=== PATIENT | male | born 1975 | race Two or more races ===

== ENCOUNTER 2024-04-18 05:50 | Inpatient (IN) | payer OTHER, MEDICAID ==
[2024-04-14 09:15] LABS: Urine Bacteria None Seen /hpf (None Seen)
[2024-04-14 10:02] LABS: Basophils # (auto) 0 10 ^3/uL (0-0.2); Basophils % (auto) 0.4 % (0.0-2.0); Eosinophils # (auto) 0.1 10 ^3/uL (0-0.8); Eosinophils % (auto) 0.7 % (0.0-7.0); Hematocrit 49.7 % (41.0-53.0); Hemoglobin 16.8 g/dL (13.5-17.5); Lymphocytes # (auto) 3.2 10 ^3/uL (0.4-5.4); Lymphocytes % (auto) 35.9 % (10.0-50.0); Mean Corpuscular Hemoglobin 29.8 pg (28.0-32.0); Mean Corpuscular Hgb Conc. 33.9 g/dL (32.0-36.0); Mean Corpuscular Volume 88.1 fL (80.0-100.0); Monocytes # (auto) 0.4 10 ^3/uL (0-1.3); Monocytes % (auto) 4.6 % (0.0-12.0); Neutrophils # (auto) 5.3 10 ^3/uL (1.6-8.6); Neutrophils % (auto) 58.4 % (37.0-80.0); Platelet Count (auto) 239 10^3/uL (140-450); Red Blood Cells 5.64 10^6/uL (4.5-5.90)
[2024-04-14 10:26] LABS: Alanine Aminotransferase 37 U/L (7-40); Albumin 4.6 g/dL (3.2-4.8); Alkaline Phosphatase 79 U/L (46-116); Anion Gap 8 (5-15); Aspartate Aminotransferase 19 U/L (13-40); BUN/Creatinine Ratio 13.9 (10.0-20.0); Bilirubin, Total 0.6 mg/dL (0.2-1.0); Blood Urea Nitrogen 15 mg/dL (9-23); Calcium 9.9 mg/dL (8.7-10.4); Carbon Dioxide 28 mmol/L (20-31); Chloride 103 mmol/L (98-107); Potassium 3.8 mmol/L (3.5-5.1); Sodium 139 mmol/L (136-145)
[2024-04-14 10:30] LABS: Glucose 168 mg/dL (74-106)
[2024-04-14 10:43] LABS: Urine Blood Negative /uL (Negative); Urine Clarity Clear (Clear); Urine Color Light-Yellow (Yellow); Urine Protein, UAD Negative (Negative); Urine Specific Gravity 1.023 (1.001-1.035); Urine Squamous Epithelial Cell None Seen /hpf (<5); Urine Urobilinogen Normal (Negative); Urine WBC < 1 /HPF (0-3); Urine pH 5.5 (5.0-9.0)
[2024-04-14 10:53] LABS: INR 1.02 (0.9-1.15); Partial Thromboplastin Time 28.2 SEC (24.5-34.5); Prothrombin Time 10.8 sec (9.3-11.8)
[~2024-04-18] VITALS: Ht 172.7 cm; Wt 66.0 kg
[2024-04-18] VITALS (12 sets, daily range): BP systolic 93–139; BP diastolic 41–82; PULSE 69–87; RESP 12–19; TEMP 97.5–98.3; O2SAT 89–98
[~2024-04-18 05:50] MED LIST: HYDR25TA4 PO; LISI40TA16 PO; METO25TA36 PO
[2024-04-18] MEDS: ceFAZolin 2 GM/D5W100ml 100 ML IV ONE (06:25)
[2024-04-18] MEDS: TRANEXAMIC ACID 20 ML ONE (06:36)
[2024-04-18] MEDS: LIDOCAINE W/ EPINEPHRINE 1% 20ML VIAL ONE (06:36)
[2024-04-18] MEDS ORDERED: NALOXONE HCL 0.4 MG/ML VIAL IV PRN (06:45)
[2024-04-18] MEDS ORDERED: ePHEDrine SULFATE 50 MG/ML AMP IV PRN (06:45)
[2024-04-18] MEDS: ONDANSETRON HCL 4 MG/2 ML VIAL IV ONE (06:45)
[2024-04-18] MEDS ORDERED: MORPHINE SULFATE 4 MG/ML SYR/VIAL IV PRN ×2 (06:45)
[2024-04-18] MEDS ORDERED: HYDROmorphone HCL 2 MG/ML VL/or syr IV PRN ×2 (06:45)
[2024-04-18] MEDS ORDERED: hydrALAZINE HCL 20 MG/ML VL IV PRN (06:45)
[2024-04-18] MEDS: CIPROFLOXACIN 400MG/200ML 400 ML IV ONE (06:53)
[2024-04-18] MEDS ORDERED: PROPOFOL 10 MG/ML 20 ML IV ONE (06:58)
[2024-04-18] MEDS ORDERED: ROCURONIUM 10MG/ML 10ML VIAL IV ONE (06:58)
[2024-04-18] MEDS: PROPOFOL 200 ML IV ONE ×2 (07:04→09:19)
[2024-04-18] MEDS ORDERED: MIDAZOLAM HCL 2MG/2ML 2ml VIAL (1mg/ml) ONE (07:06)
[2024-04-18] MEDS ORDERED: fentaNYL CITRATE 100 MCG/2 ML VL ONE ×3 (07:06→09:58)
[2024-04-18] MEDS ORDERED: LIDOCAINE 1% INJ PF 5ML AMP ONE (07:41)
--- NOTE | 2024-04-18 07:46 | DVHHP2 ---
Admitting Diagnosis: lumbar spinal stenosis with severe neurogenic claudication History of Present Illness Home Meds Reported Medications Lisinopril (Lisinopril) 40 Mg Tab, 40 MG PO DAILY, TAB 04/14/24 Metoprolol Succinate (Toprol Xl) 25 Mg Tab, 25 MG PO DAILY, TAB 04/14/24 Hydrochlorothiazide (Hydrochlorothiazide) 25 Mg Tab, 25 MG PO DAILY, TAB 04/14/24 Timing/Duration of Neck Pain: Getting worse, Changing over time Timing/Duration of Back Pain: Getting worse, Changing over time Quality of Back Pain: Sharpness, Stabbing Back Pain Location: Lumbar spine Back Pain Radiation: Lower legs Method of Injury/Prior Factors: Unknown Modifying Factors for Back Barbara: Movement Associated Symptoms of Back Pa: Numbness in feet, Tingling in legs, Tingling in feet, Sensory loss, Motor loss H&P Exam Vital Signs Vital Signs Date Time Temp Pulse Resp B/P (MAP) Pulse Ox O2 Delivery O2 Flow Rate FiO2 04/18/24 06:50 99.4 78 18 154/96 (115) 99 99.4 General Appeara: Well developed, Well nourished, Normal Appearance Head Exam: Normal inspection Neck Exam: Normal inspection, Non-tender, Normal alignment Eye Exam: bilateral eye Normal inspection, bilateral eye PERRL, bilateral eye EOMI Ear Exam: bilateral ear Auricle normal, bilateral ear Canal normal, bilateral ear TM normal Nasal Exam: Normal inspection Mouth: Normal Inspection Pulmonary/Respiratory: Normal inspection, Normal breath sounds, Chest non- tender, Lungs clear Abdominal Exam: Normal bowel sounds, Soft, No tenderness, No hepatospenomegaly, No masses Rectal Exam: Deferred Back Exam: Decreased range of motion, Muscle spasm, Vertebral tenderness Pelvic Exam: Not done Male Genital Exam: Not done Shoulder Exam: Normal inspection, Non-tender, Normal ROM Elbow/Forearm Exam: Normal inspection, Non-tender, Normal ROM Wrist Exam: Normal inspection, Non-tender, Normal ROM Hand Exam: Normal inspection, Non-tender, Normal ROM Hip exam: Normal inspection, Non-tender, Normal range of motion Legs: bilateral leg non-tender, bilateral leg normal inspection, bilateral leg normal range of motion, bilateral leg no evidence of injury Knees: bilateral knee non-tender, bilateral knee normal inspection, bilateral knee normal range of motion, bilateral knee no evidence of injury Ankle Exam: bilateral ankle Normal inspection, bilateral ankle Non-tender, bilateral ankle Normal range of motion, bilateral ankle No evidence of injury Foot: bilateral foot non-tender, bilateral foot normal inspection, bilateral foot normal range of motion, bilateral foot no evidence of injury Tendon/ Neuro: Motor deficit, Sensory deficit Motor/Sensory: Weak motor strength RLE, Weak motor strength LLE Deep Tendon Ref: All intact Neuro/Mental St: Alert, Oriented Appearance: Appropriate appearance, Appropriate insight Eye contact/ Speech: Cooperative, Good eye contact, Normal speech Coordination/Gait: Normal finger->nose, Normal gait, Negative Romberg's sign, Abnormal gait Lymphatic: Normal inspection Labs/Xrays Labs Test 04/14/24 09:09 Range/Units White Blood Count 9.0 4.4-10.8 10^3/uL Red Blood Count 5.64 4.5-5.90 10^6/uL Hemoglobin 16.8 13.5-17.5 g/dL Hematocrit 49.7 41.0-53.0 % Mean Corpuscular Volume 88.1 80.0-100.0 fL Mean Corpuscular Hemoglobin 29.8 28.0-32.0 pg Mean Corpuscular Hemoglobin Concent 33.9 32.0-36.0 g/dL Red Cell Distribution Width 14.0 11.8-14.3 % Platelet Count 239 140-450 10^3/uL Mean Platelet Volume 8.9 6.9-10.8 fL Neutrophils (%) (Auto) 58.4 37.0-80.0 % Lymphocytes (%) (Auto) 35.9 10.0-50.0 % Monocytes (%) (Auto) 4.6 0.0-12.0 % Eosinophils (%) (Auto) 0.7 0.0-7.0 % Basophils (%) (Auto) 0.4 0.0-2.0 % Neutrophils # (Auto) 5.3 1.6-8.6 10 ^3/uL Lymphocytes # (Auto) 3.2 0.4-5.4 10 ^3/uL Monocytes # (Auto) 0.4 0-1.3 10 ^3/uL Eosinophils # (Auto) 0.1 0-0.8 10 ^3/uL Basophils # (Auto) 0 0-0.2 10 ^3/uL Nucleated Red Blood Cells 0.0 % Prothrombin Time 10.8 9.3-11.8 sec Prothrombin Time INR 1.02 0.9-1.15 Activated Partial Thromboplast Time 28.2 24.5-34.5 SEC Urine Color Light-yellow Yellow Urine Clarity Clear Clear Urine pH 5.5 5.0-9.0 Urine Specific [place] 1.023 1.001-1.035 Urine Protein Negative Negative Urine Ketones Negative Negative Urine Blood Negative Negative /uL Urine Nitrite Negative Negative Urine Bilirubin Negative Negative Urine Urobilinogen Normal Negative mg/dL Urine Leukocyte Esterase Negative Negative /uL Urine RBC 1 0 - 3 /hpf Urine Microscopic WBC < 1 0-3 /HPF Urine Squamous Epithelial Cells None seen <5 /hpf Urine Bacteria None seen None Seen /hpf Urine Glucose Normal Normal mg/dL Sodium Level 139 136-145 mmol/L Potassium Level 3.8 3.5-5.1 mmol/L Chloride Level 103 98-107 mmol/L Carbon Dioxide Level 28 20-31 mmol/L Anion Gap 8 5-15 Blood Urea Nitrogen 15 9-23 mg/dL Creatinine 1.08 0.700-1.30 mg/dL Glomerular Filtration Rate Calc 85 >90 mL/min BUN/Creatinine Ratio 13.9 10.0-20.0 Serum Glucose 168 H 74-106 mg/dL Calcium Level 9.9 8.7-10.4 mg/dL Total Bilirubin 0.6 0.2-1.0 mg/dL Aspartate Amino Transferase (AST) 19 13-40 U/L Alanine Aminotransferase (ALT) 37 7-40 U/L Alkaline Phosphatase 79 46-116 U/L Total Protein 7.0 5.7-8.2 g/dL Albumin 4.6 3.2-4.8 g/dL Assessment/Plan Primary Diagnosis lumbar spinal stenosis with severe neurogenic claudication Plan admite for elective lumbar spine surgery Plan discussed with: Patient STEVE KEYES MD Apr 18, 2024 07:46
[2024-04-18] MEDS ORDERED: HYDROmorphone HCL 2 MG/ML VL/or syr ONE (08:21)
[2024-04-18] MEDS ORDERED: MORPHINE SULFATE INJ 2 MG/ml SYRG IV PRN ×2 (08:30)
[2024-04-18] MEDS ORDERED: NITROGLYCERIN 0.4 MG SL TAB SL PRN (08:30)
[2024-04-18] MEDS ORDERED: ONDANSETRON HCL 4 MG/2 ML VIAL IV PRN (08:30)
[2024-04-18] MEDS ORDERED: ACETAMINOPHEN 325 MG TAB PO PRN (08:30)
[2024-04-18] MEDS ORDERED: ePHEDrine SULFATE 50 MG/ML AMP ONE (09:29)
[2024-04-18] MEDS ORDERED: SUGAMMADEX 200mg/2ml Vial (100MG/ML) IV ONE (10:04)
[2024-04-18] MEDS: THROMBIN (BOVINE) 5000 UNIT SOL VIAL ONE (10:18)
[2024-04-18] MEDS: GELATIN 1 SPONGE SIZE 100 TOP ONE (10:18)
[2024-04-18] MEDS ORDERED: DexAMETHasone SOD PHOS 10MG/1ML VIAL INJ ONE (11:03)
[2024-04-18] MEDS ORDERED: ONDANSETRON HCL 4 MG/2 ML VIAL ONE (11:03)
[2024-04-18] MEDS ORDERED: KETOROLAC TROMETH 30 MG/ML 1ML VIAL ONE (11:03)
--- NOTE | 2024-04-18 11:35 | DVHOP2 ---
Operative Report - 2 Report Details Date: 04/18/24 Preop Diagnosis: Post laminectomy syndrome with severe lumbar spinal stenosis /degenerative disc disease and neurogenic claudication Postop Diagnosis: same as pre op Surgeon: Alexis Keyes MD Mobile Designer: none Anesthesiologist: Dr. mchugh Anesthesia: General Consent: The patient was informed of the risks and benefits of the procedure. These include but are not limited to complications of anesthesia, postoperative infection, incomplete relief of symptoms, recurrence of symptoms, damage to blood vessels, nerves and tendons, deep venous thrombosis, pulmonary embolism and possible need for repeat surgery in the future. Name of Procedure Performed see detailed note Procedure Details Procedure Details: Pre-op Diagnosis: 1. 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 Lumbar spinal stenosis with incapacitating radiculopathy Post-op Diagnosis: same as pre op Procedure: 1. Revision lumbar 5 laminotomies/foraminotomies/facetectomies to decompress central canal and lumbar 5 nerve roots bilaterally 2. Revision lumbar 4 laminotomies, foraminotomies/facetectomies to decompress central canal and lumbar 4 nerve roots bilaterally 3. lumbar 3 laminectomy with lumbar 3 foraminotomies and facetectomies to decompress central canal and bilateral lumbar 3 tena roots 4. Lumbar 3 to 5 posterior spinal intertransverse fusion with bone graft 5. Lumbar 3 to 5 posterior spinal instrumentation with pedicle screws 6. Autograft bone for fusion 7. Allograft bone Bacteria to augment fusion 8. De-mineralized bone matrix to augment fusion 9. Microscope for micro dissection Surgeon: Dr. Keyes Assist: none Anesthesia: General Fluids and EBL: See anesthesia note Patient was seen in the Pre Anesthesia Care Unit (PACU) and the operative site was initialed by me. All questions were answered to the patients satisfaction and chart reviewed. The patient was taken to the operative room where pre- operative antibiotics were given 30 minutes prior to incision. General anesthesia was induced and neuro-monitoring leads placed. Lamas catheter was placed. The patient was turned prone onto the [facility] spinal table. While positioning, I made sure that the belly was free to allow proper expansion of the lungs. The hips were extended and all bony prominences padded. The shoulders were abducted 80 degree and the elbows flexed 100 degrees with no tension on the brachial plexus. I check the foot arterial pulses and they were palpable. The old surgical scar was marked with a marker prior to prepping and draping. The patient was prepped and draped and time out was taken at this time per usual protocol. At this time, the C-arm fluoroscope was brought in and was used to lindsey the incision borders proximally and distally. Using a Number 10 Blade, an incision was made extending it proximally and distally per C arm lindsey from the posterior spinous process of lumbar 3 down to lumbar 5 , down to the lumbo-dorsal fascia. All bleeding was controlled with electrocautery. Self- retaining retractors were placed. Electrocautery was then used to take down the lumbo-dorsal fascia, to free the muscle off the bone bilaterally where the tissue was virgin. A Noah retractor was placed over the posterior spinous process proximally and a lateral C-arm fluoroscope image was taken to insure we were at the correct level. Next, dissection through the prior surgical site was started at virgin tissue and the deep back muscles were taken down as deep as possible while avoiding getting too close to the dura and avoiding being too shallow to cause nerve injury and bleeding. Next, using bovie electro cautery, The deep fascia laterally to the facet joints was removed to expose the transverse processes of lumbar 2 , 3 and 4 and 5 while taking care to avoid injuring the facet capsule at the proximal end of the incision. Next, the microscope was bought in for visualization and using a Luxell rongeur, the posterior spinous process of lumbar 3,4,and remnants of lumbar 5 removed and the bone was saved for use as local autograft. I used alternating Kerison 2 mm and 3 mm rongeurs to perform lumbar 3 ,4 and 5 and bilateral laminotomies/foraminotomies and facetectomies to revise the decompression of the central canal and lateral recesses and foramen to decompress the bilateral lumbar 3,4,5 nerve roots and central canal. Next using alternating Kerison 2mm and 3 mm rongeurs, the superior articular facets of lumbar 3,4,5 were removed bilaterally at the virgin dissection to decompress the lateral recess (facetectomies) and then extended proximally to decompress the foramen bilaterally (foraminotomies). Next , carefully, straight and curved curettes were used to free up the dura from residual lamina left from the prior surgeries and kerison 2mm and 3 mm reongeurs removed the remaining lamina (revisionlaminotomies). Next, the 2mm and 3mm Kerison rongeurs undercut the superarticular facets and widened the foramina in the manner described above for the3,4 and 5 levels. I used a ball tipped nerve probed to insure that the respective nerve roots were able to be mobilized 5mm in each direction were unimpeded in the lateral recess and foramen. Next I carefully inspected the dura to make sure no durotomy was visible and it was not. I covered the exposed dura with gelfoam soaked in thrombin and the microscope was wheeled away from the operative filed. The C-arm fluoroscope was brought in and perfect AP views of the lumbar 3,4 and 5 pedicle were obtained. I placed bilateral pedicle screws at this levels by: using a Lenke awl to make a airplane pilot crop dusting hole, then a ball tip robe to make sure there was no pedicle breach, then a tap to prepare the track and a 6.5 mm diameter 45 mm length pedicle screw from the [employer] was placed bilaterally. This step to place bilateral pedicle screws was repeated up to the lumbar 3,4 and 5 level. Next, the c-arm fluoroscope took an AP and lateral x-ray to ensure proper placement of the pedicle screws. Next, the neuro-stimulation probe was placed over the tip of each screw and each screw stimulated only after a current greater than 10 mA was delivered to the screw. Next , I took a Midas Herb Drill to decorticate the transverse process which were exposed and local bone graft, Bacterin allograft bone substitute and Demineralized bone matrix were placed along the inter transverse process intervals bilaterally (the fusion bed). Next a curved kavin sized to fit the pedicle screw interval was placed and secured to each pedicle screw using set screws, The set screws were tighten using a torque screwdriver (set to 10 N*M torque) to secure the kavin to the pedicle screws bilaterally. Final AP and lateral C arm fluoroscopic films were taken at this time. Next a 10 [place] diameter Hemovac drain was laced deep to the lumbo-dorsal fascia. The lumbo-dorsal fascia was closed with interrupted 0-Vicry sutures. The subcutaneous tissue was closed with interrupted 2-0 Vicryl sutures. The skin was closed with 2-0 nylon subcuticular suture. Sterile dressings were place. The pt. was turned supine onto the stretcher, extubated and taken to the recovery room in stable condition. Additional Notes: Plan made post op for TLSO brace and bone stimulator placement when on the floor and stable [employer] Condition Stable Disposition Still a Patient ALEXIS KEYES MD Apr 18, 2024 11:35
--- NOTE | 2024-04-18 11:56 | DVH ---
C-ARM FLUOROSCOPY: PROCEDURE: Lumbar decompression FLUOROSCOPY TIME: 79 sec DAP: 89 mgy FINDINGS: Spot intraoperative C arm radiographs demonstrating lumbar decompression. IMPRESSION: Please refer to surgical report for detailed findings.
[2024-04-18] MEDS: CYCLOBENZAPRINE HCL 10 MG TAB PO SCH (14:00)
[2024-04-18] MEDS: ceFAZolin 1GM/50ML 50 ML IV SCH ×2 (14:00→20:25)
[2024-04-18] MEDS: HYDROcodone-ACET 10/325MG TAB PO PRN (20:08)
[2024-04-18] MEDS: DOCUSATE SOD 100 MG CAP PO SCH (22:00)
[2024-04-18] MEDS: D5W/SOD CHLO 0.9% 1,000 ML IV SCH (22:19)
[2024-04-19] VITALS (10 sets, daily range): BP systolic 94–123; BP diastolic 50–65; PULSE 63–89; RESP 16–19; TEMP 97.3–98.9; O2SAT 94–100
[2024-04-19] MEDS: hydroCHLOROthiazide 25 MG TAB PO SCH (10:00)
--- NOTE | 2024-04-19 14:33 | DVHINCON2 ---
Date Seen: Apr 19, [address] Rose Allergies: Coded Allergies: NO KNOWN ALLERGIES (Unverified , 04/14/24) Home Meds Reported Medications Lisinopril (Lisinopril) 40 Mg Tab, 40 MG PO DAILY, TAB 04/14/24 Metoprolol Succinate (Toprol Xl) 25 Mg Tab, 25 MG PO DAILY, TAB 04/14/24 Hydrochlorothiazide (Hydrochlorothiazide) 25 Mg Tab, 25 MG PO DAILY, TAB 04/14/24 Current Medications Current Medications Medications (Trade) Dose Ordered Sig/Karli Route PRN Reason Start Time Stop Time Status Last Admin Hydrochlorothiazide (hydroCHLOROthiazide TABLET) 25 mg DAILY PO 04/19/24 10:00 Cefazolin Sodium 50 ml @ 100 mls/hr Q8H IV 04/18/24 20:30 04/20/24 04:59 04/19/24 13:46 Vital Signs Vital Signs Date Time Temp Pulse Resp B/P (MAP) Pulse Ox O2 Delivery O2 Flow Rate FiO2 04/19/24 13:00 98.3 71 17 94/50 (65) 98 98.3 04/19/24 08:00 Room Air* 0 21 Labs/Diagnostic Data Labs Test 04/14/24 09:09 Range/Units White Blood Count 9.0 4.4-10.8 10^3/uL Red Blood Count 5.64 4.5-5.90 10^6/uL Hemoglobin 16.8 13.5-17.5 g/dL Hematocrit 49.7 41.0-53.0 % Mean Corpuscular Volume 88.1 80.0-100.0 fL Mean Corpuscular Hemoglobin 29.8 28.0-32.0 pg Mean Corpuscular Hemoglobin Concent 33.9 32.0-36.0 g/dL Red Cell Distribution Width 14.0 11.8-14.3 % Platelet Count 239 140-450 10^3/uL Mean Platelet Volume 8.9 6.9-10.8 fL Neutrophils (%) (Auto) 58.4 37.0-80.0 % Lymphocytes (%) (Auto) 35.9 10.0-50.0 % Monocytes (%) (Auto) 4.6 0.0-12.0 % Eosinophils (%) (Auto) 0.7 0.0-7.0 % Basophils (%) (Auto) 0.4 0.0-2.0 % Neutrophils # (Auto) 5.3 1.6-8.6 10 ^3/uL Lymphocytes # (Auto) 3.2 0.4-5.4 10 ^3/uL Monocytes # (Auto) 0.4 0-1.3 10 ^3/uL Eosinophils # (Auto) 0.1 0-0.8 10 ^3/uL Basophils # (Auto) 0 0-0.2 10 ^3/uL Nucleated Red Blood Cells 0.0 % Prothrombin Time 10.8 9.3-11.8 sec Prothrombin Time INR 1.02 0.9-1.15 Activated Partial Thromboplast Time 28.2 24.5-34.5 SEC Urine Color Light-yellow Yellow Urine Clarity Clear Clear Urine pH 5.5 5.0-9.0 Urine Specific [place] 1.023 1.001-1.035 Urine Protein Negative Negative Urine Ketones Negative Negative Urine Blood Negative Negative /uL Urine Nitrite Negative Negative Urine Bilirubin Negative Negative Urine Urobilinogen Normal Negative mg/dL Urine Leukocyte Esterase Negative Negative /uL Urine RBC 1 0 - 3 /hpf Urine Microscopic WBC < 1 0-3 /HPF Urine Squamous Epithelial Cells None seen <5 /hpf Urine Bacteria None seen None Seen /hpf Urine Glucose Normal Normal mg/dL Sodium Level 139 136-145 mmol/L Potassium Level 3.8 3.5-5.1 mmol/L Chloride Level 103 98-107 mmol/L Carbon Dioxide Level 28 20-31 mmol/L Anion Gap 8 5-15 Blood Urea Nitrogen 15 9-23 mg/dL Creatinine 1.08 0.700-1.30 mg/dL Glomerular Filtration Rate Calc 85 >90 mL/min BUN/Creatinine Ratio 13.9 10.0-20.0 Serum Glucose 168 H 74-106 mg/dL Calcium Level 9.9 8.7-10.4 mg/dL Total Bilirubin 0.6 0.2-1.0 mg/dL Aspartate Amino Transferase (AST) 19 13-40 U/L Alanine Aminotransferase (ALT) 37 7-40 U/L Alkaline Phosphatase 79 46-116 U/L Total Protein 7.0 5.7-8.2 g/dL Albumin 4.6 3.2-4.8 g/dL Assessment see dictated note Plan discussed with: Patient Date of Service: Apr 19, 2024 Billing Provider: HINA COTTON MD Common Visit Codes: [id number] INP/OBS CARE (HIGH) HINA COTTON MD Apr 19, 2024 14:33
--- NOTE | 2024-04-19 19:58 | DVHINCON2 ---
INTERNAL MEDICINE CONSULT HISTORY OF PRESENT ILLNESS: The patient is a 48-year-old gentleman who was admitted after he underwent surgery on the back for lumbar spinal stenosis and neurogenic claudication. The patient at this time denies any significant back pain. No chest pain, no shortness of breath. No nausea or vomiting. REVIEW OF SYSTEMS: Review of rest of systems are otherwise currently negative. PAST MEDICAL HISTORY: Significant for hypertension and sleep apnea. MEDICATIONS: She takes metoprolol, lisinopril, hydrochlorothiazide. ALLERGIES: No known drug allergies. SOCIAL HISTORY: Denies smoking or alcohol. FAMILY HISTORY: Negative. PHYSICAL EXAMINATION: GENERAL: The patient is awake, alert. VITAL SIGNS: Temperature 98.3, pulse 71 per minute, blood pressure 105/62. SHEENT: Unremarkable. NECK: There is no JVD, no pedal edema. LUNGS: Equal bilaterally. No added sounds. CARDIOVASCULAR: S1, S2 is regular, no murmurs. ABDOMEN: Soft. There is no organomegaly. NEUROLOGIC: Nonfocal. MUSCULOSKELETAL: There is a lumbar spine dressing with drains in place. ASSESSMENT AND PLAN: * Hypertension, for which blood pressure will be monitored. * Obstructive sleep apnea for which she will continue on a BiPAP machine. * Morbid obesity. * Status post lumbar spine surgery for degenerative joint disease of the spine. The patient will be placed on Physical Therapy and pain medications. MD JOSE G An/ES TID: [id number] RECEIPT: [id number]
[2024-04-20] VITALS (8 sets, daily range): BP systolic 105–138; BP diastolic 62–86; PULSE 72–95; RESP 17–20; TEMP 98–99.2; O2SAT 93–98
[2024-04-20 07:25] LABS: Basophils # (auto) 0 10 ^3/uL (0-0.2); Basophils % (auto) 0.2 % (0.0-2.0); Eosinophils # (auto) 0 10 ^3/uL (0-0.8); Eosinophils % (auto) 0.2 % (0.0-7.0); Hemoglobin 14.3 g/dL (13.5-17.5); Lymphocytes # (auto) 2.8 10 ^3/uL (0.4-5.4); Lymphocytes % (auto) 22.8 % (10.0-50.0); Mean Corpuscular Hemoglobin 29.4 pg (28.0-32.0); Mean Corpuscular Hgb Conc. 33.1 g/dL (32.0-36.0); Mean Corpuscular Volume 88.7 fL (80.0-100.0); Monocytes % (auto) 8.4 % (0.0-12.0); Neutrophils # (auto) 8.4 10 ^3/uL (1.6-8.6); Neutrophils % (auto) 68.4 % (37.0-80.0); Nucleated Red Blood Cells % 0.1 %; Platelet Count (auto) 211 10^3/uL (140-450); Red Blood Cells 4.85 10^6/uL (4.5-5.90); Red Cell Distribution Width 14.4 % (11.8-14.3); White Blood Cell 12.3 10^3/uL (4.4-10.8)
[2024-04-20 07:57] LABS: Alanine Aminotransferase 27 U/L (7-40); Alkaline Phosphatase 67 U/L (46-116); Anion Gap 8 (5-15); Aspartate Aminotransferase 39 U/L (13-40); BUN/Creatinine Ratio 16.4 (10.0-20.0); Blood Urea Nitrogen 18 mg/dL (9-23); Calcium 9.1 mg/dL (8.7-10.4); Carbon Dioxide 30 mmol/L (20-31); Chloride 104 mmol/L (98-107); Potassium 3.9 mmol/L (3.5-5.1); Sodium 142 mmol/L (136-145); Total Protein 6.1 g/dL (5.7-8.2)
[2024-04-20 08:00] LABS: Glucose 106 mg/dL (74-106)
[2024-04-20 09:08] LABS: Bilirubin, Total 0.6 mg/dL (0.2-1.0)
--- NOTE | 2024-04-20 14:21 | DVHPN2 ---
Progress Note Date Seen: Apr 20, 2024 Medical Necessity Reason Pt with a Central, PICC or Fol: No Subjective Patient reports: No new complaints Review of Systems: HEENT:Normal, CVS:Normal, RESPIRATORY:Normal, GI:Normal, :Normal, MSK:Normal, NEURO:Normal Objective vital signs Vital Sign Date Time Temp Pulse Resp B/P (MAP) Pulse Ox O2 Delivery O2 Flow Rate FiO2 04/20/24 09:00 99.2 73 20 105/62 (76) 94 99.2 04/20/24 08:00 Room Air* 0 21 Total Intake and Output 04/19/24 04/19/24 04/20/24 15:00 23:00 07:00 Intake Total 950 ml 1300 ml Output Total 1000 ml 150 ml Balance -50 ml 1150 ml medications Current Medications Medications Dose Ordered Sig/Karli Route Start Time Stop Time Status Last Admin Dose Admin Dextrose/Sodium Chloride 1,000 ml @ 100 mls/hr Q10H IV 04/18/24 08:30 04/20/24 06:46 100 MLS/HR Ondansetron HCl 4 mg Q4HP PRN IV 04/18/24 08:30 Acetaminophen 650 mg Q6HP PRN PO 04/18/24 08:30 Acetaminophen/ Hydrocodone Bitart 1 tab Q6HP PRN PO 04/18/24 08:30 04/20/24 09:01 1 TAB Morphine Sulfate 1 mg Q4HP PRN IV 04/18/24 08:30 Cyclobenzaprine HCl 10 mg TID PO 04/18/24 14:00 04/20/24 13:33 10 MG Docusate Sodium 100 mg BID PO 04/18/24 10:00 04/20/24 09:02 100 MG Nitroglycerin 0.4 mg Q5MINP PRN SL 04/18/24 08:30 Morphine Sulfate 2 mg Q30M PRN IV 04/18/24 08:30 Examination: GENERAL:Normal, HEENT:Normal, NECK:Normal, LUNGS:Normal, CVS:Normal, ABDOMEN:Normal, MSK:Normal, MSK:Abnormal (DRAINS+), SKIN:Normal, NEURO:Normal, :Normal laboratory and microbiology Laboratory Tests 04/20/24 06:28 Test 04/20/24 06:28 Range/Units Serum Glucose 106 74-106 mg/dL Problem List/Assessment/Plan Problem List/Assessment/Plan * Hypertension, for which blood pressure will be monitored. * Obstructive sleep apnea for which she will continue on a BiPAP machine. * Morbid obesity. * Status post lumbar spine surgery for degenerative joint disease of the spine. The patient will be placed on Physical Therapy and pain medications. Plan discussed with: Patient My Orders My Orders Orders - HIAN COTTON MD Procedure Category Date Status Time Discontinue Tele AI 04/19/24 In Process 14:31 Transfer Orders XFER 04/19/24 Transmitted 14:31 Date of Service: Apr 20, 2024 Billing Provider: HINA COTTON MD Common Visit Codes: [id number] INP/OBS CARE(HIGH) HINA COTTON MD Apr 20, 2024 14:21
--- NOTE | 2024-04-20 17:42 | DVHPN2 ---
Progress Note - Surgical Date Seen: Apr 20, 2024 Post op day Post op day: 1 Subjective Patient reports: No new complaints, Feels better Review of Systems: HEENT:Normal, CVS:Normal, RESPIRATORY:Normal, GI:Normal, :Normal, MSK:Normal, NEURO:Normal Objective Vital signs Vital Sign Date Time Temp Pulse Resp B/P (MAP) Pulse Ox O2 Delivery O2 Flow Rate FiO2 04/20/24 13:00 98.9 81 20 138/75 (96) 93 98.9 04/20/24 08:00 Room Air* 0 21 Total Intake and Output 04/19/24 04/19/24 04/20/24 15:00 23:00 07:00 Intake Total 950 ml 1300 ml Output Total 1000 ml 150 ml Balance -50 ml 1150 ml Medications Current Medications Medications Dose Ordered Sig/Karli Route Start Time Stop Time Status Last Admin Dose Admin Ondansetron HCl 4 mg Q4HP PRN IV 04/18/24 08:30 Acetaminophen 650 mg Q6HP PRN PO 04/18/24 08:30 Acetaminophen/ Hydrocodone Bitart 1 tab Q6HP PRN PO 04/18/24 08:30 04/20/24 09:01 1 TAB Morphine Sulfate 1 mg Q4HP PRN IV 04/18/24 08:30 Cyclobenzaprine HCl 10 mg TID PO 04/18/24 14:00 04/20/24 13:33 10 MG Docusate Sodium 100 mg BID PO 04/18/24 10:00 04/20/24 09:02 100 MG Nitroglycerin 0.4 mg Q5MINP PRN SL 04/18/24 08:30 Morphine Sulfate 2 mg Q30M PRN IV 04/18/24 08:30 Laboratory Laboratory Tests 04/20/24 06:28 Test 04/20/24 06:28 Range/Units Serum Glucose 106 74-106 mg/dL Examination: GENERAL:Normal, HEENT:Normal, NECK:Normal, LUNGS:Normal, CVS:Normal, ABDOMEN:Normal, MSK:Normal (Patient reporting great improvement of his left leg pain), SKIN:Normal (Sherri dressing intact, seal intact power source functioning. Deep drain 1. Total of 125 mL out since surgery superficial drain 2. With 150 mL out since surgery we will keep these drains in another day.), NEURO:Normal (Patient reports a great improvement in his preoperative symptoms to his left leg), :Normal Problem List/Assessment/Plan Problems: (1) Muscle spasm of back (2) Postoperative pain after spinal surgery Assessment and Plan We will keep patient has drains in another day re-evaluate drainage output and characteristics tomorrow Physical therapy evaluation and treatment Encouraged patient is sitting at side of bed for meals Encouraged patient to reposition himself frequently in bed. Currently patient is complaining of back tenderness to the surgical site under the sherri dressing. He may lay on lateral positions as much as he wants. Patient is progressing well Plan to discharge in the next 1-2 days depending on drain output Call with questions Jazmine Asencio [facility] Orthopaedic Spine Surgery nurse practitioner For Dr Vilma Rose Patient was examined, chart reviewed, labs evaluated, and diagnostic studies and findings analyzed. Case was discussed with Dr. Alexis Rose who formulated the plan of care. This medical document was created using an electronic medical record system with [employer] dictation system. Although this document has been carefully reviewed, there might still be some phonetic and typographical errors. These areas are purely typographical due to imperfections of the software programs, and do not reflect any compromise in the patient's medical care. Plan discussed with Plan discussed with: Patient Visit Coding Surgery Date of Service if different f: Apr 20, 2024 Billing Provider: LISA ASENCIO NP Surgery Visit Codes: NOT BILLABLE LISA ASENCIO NP Apr 20, 2024 17:42
[2024-04-21] VITALS (7 sets, daily range): BP systolic 114–135; BP diastolic 52–80; PULSE 72–90; RESP 18–20; TEMP 97–99; O2SAT 96–97
[2024-04-21] MEDS ORDERED: D5W/SOD CHLO 0.9% 1,000 ML IV ONE (06:15)
--- NOTE | 2024-04-21 13:37 | DVHPN2 ---
Reviewed: Care Plan, H&P, Labs, Medications, Previous Orders, Radiology Changes from previous H/P or p: No Changes General: Per HPI Objective Vitals Vital Signs Date Time Temp Pulse Resp B/P (MAP) Pulse Ox O2 Delivery O2 Flow Rate FiO2 04/21/24 13:00 98.2 86 20 130/78 (95) 97 98.2 04/21/24 08:16 Room Air* 0 21 Intake/Output Intake and Output 04/21/24 06:59 Intake Total 3250 ml Output Total 152 ml Balance 3098 ml Intake Oral 2550 ml IV Total 700 ml Output Urine Total 2 ml Drainage Total 150 ml # Voids 6 General Appearance: Alert, Oriented X3, Cooperative HEENT: Atraumatic Cardiovascular: Regular rate, Normal S1, Normal S2 Neuro: Normal speech Medications Current Medications Medications Dose Ordered Sig/Karli Route Start Time Stop Time Status Last Admin Dose Admin Ondansetron HCl 4 mg Q4HP PRN IV 04/18/24 08:30 Acetaminophen 650 mg Q6HP PRN PO 04/18/24 08:30 Acetaminophen/ Hydrocodone Bitart 1 tab Q6HP PRN PO 04/18/24 08:30 04/20/24 09:01 1 TAB Morphine Sulfate 1 mg Q4HP PRN IV 04/18/24 08:30 Cyclobenzaprine HCl 10 mg TID PO 04/18/24 14:00 04/21/24 06:00 10 MG Docusate Sodium 100 mg BID PO 04/18/24 10:00 04/21/24 09:26 100 MG Nitroglycerin 0.4 mg Q5MINP PRN SL 04/18/24 08:30 Morphine Sulfate 2 mg Q30M PRN IV 04/18/24 08:30 Laboratory Results Laboratory Tests 04/20/24 06:28 Urinalysis Test 04/14/24 09:09 Urine Color Light-yellow (Yellow) Urine Clarity Clear (Clear) Urine pH 5.5 (5.0-9.0) Urine Specific [place] 1.023 (1.001-1.035) Urine Protein Negative (Negative) Urine Ketones Negative (Negative) Urine Blood Negative /uL (Negative) Urine Nitrite Negative (Negative) Urine Bilirubin Negative (Negative) Urine Urobilinogen Normal mg/dL (Negative) Urine Leukocyte Esterase Negative /uL (Negative) Urine RBC 1 /hpf (0 - 3) Urine Microscopic WBC < 1 /HPF (0-3) Urine Squamous Epithelial Cells None seen /hpf (<5) Urine Bacteria None seen /hpf (None Seen) Urine Glucose Normal mg/dL (Normal) Labs and/or images reviewed: Labs reviewed by me, Image(s) reviewed by me Assessment/Plan Assessment/Plan Hypertension, for which blood pressure will be monitored. * Obstructive sleep apnea for which she will continue on a BiPAP machine. * Morbid obesity. * Status post lumbar spine surgery for degenerative joint disease of the spine. The patient will be placed on Physical Therapy and pain medications. Plan discussed with: Patient Date of Service: Apr 21, 2024 Billing Provider: DONNIE ANTHONY DO Common Visit Codes: [id number] INP/OBS CARE(HIGH) DONNIE ANTHONY DO Apr 21, 2024 13:37
[2024-04-21] MEDS ORDERED: DOCU-265 PO (14:11)
[2024-04-21] MEDS ORDERED: CYCL-611 PO (14:11)
[2024-04-21] MEDS ORDERED: HYDR-4798 PO (14:11)
--- NOTE | 2024-04-21 15:11 | DVHDS2 ---
ASSESSMENT ASSESSMENT Hospital Course The patient arrived for a elective spine surgery with Dr. ROSE. Surgery went as planned with no complications. After a short stay in the PACU patient was admitted to the hospital for postoperative care and pain management over the course of 3 postoperative days the patient was able to tolerate a diet, ambulate independently, the pain has been managed with oral analgesics. The surgical site is well-approximated with sutures, some residual drainage continues from drain insertion sites after removal, however it is manageable with daily wound care and dressing changes. Some improvement to preoperative symptoms of extremities, strength and motion. There is new post operative pain that is localized to the surgical site. The patient will follow-up with Dr. Rose for wound check and suture check or staple removal. Assessment same as pre op Acute pain status post spine surgery Acute muscle spasms related to spine surgery lumbar Problems: (1) Muscle spasm of back Assessments: Prescription sent for muscle spasms (2) Postoperative pain after spinal surgery Assessments: Prescriptions sent for oral analgesia (3) Constipation due to opioid therapy Assessments: Prescription sent for stool softener LISA CLEMENTS NP Apr 21, 2024 15:11
--- NOTE | 2024-04-21 15:12 | DVHDS2 ---
Discharge Summary Date of Admission Apr 18, 2024 at 08:30 Date of Discharge: Apr 21, 2024 Admitting Diagnosis Lumbar stenosis Wounds: Posterior lumbar surgical site covered with sherri dressing seal is intact and power source is functioning well. This dressing does not need to be changed unless it becomes inoperable. Power source takes double a battery is which may be changed if there is a problem. A green flashing lights should remain on the device at all times if there is a problem check the seal or change the batteries. Any other trouble shooting you can call the office at [phone] and let them know you have a question about your sherri dressing Labs/Diagnostic Data: Laboratory Results Test 04/20/24 06:28 04/14/24 09:09 White Blood Count 12.3 10^3/uL (4.4-10.8) Red Blood Count 4.85 10^6/uL (4.5-5.90) Hemoglobin 14.3 g/dL (13.5-17.5) Hematocrit 43.0 % (41.0-53.0) Mean Corpuscular Volume 88.7 fL (80.0-100.0) Mean Corpuscular Hemoglobin 29.4 pg (28.0-32.0) Mean Corpuscular Hemoglobin Concent 33.1 g/dL (32.0-36.0) Red Cell Distribution Width 14.4 % (11.8-14.3) Platelet Count 211 10^3/uL (140-450) Mean Platelet Volume 8.5 fL (6.9-10.8) Neutrophils (%) (Auto) 68.4 % (37.0-80.0) Lymphocytes (%) (Auto) 22.8 % (10.0-50.0) Monocytes (%) (Auto) 8.4 % (0.0-12.0) Eosinophils (%) (Auto) 0.2 % (0.0-7.0) Basophils (%) (Auto) 0.2 % (0.0-2.0) Neutrophils # (Auto) 8.4 10 ^3/uL (1.6-8.6) Lymphocytes # (Auto) 2.8 10 ^3/uL (0.4-5.4) Monocytes # (Auto) 1.0 10 ^3/uL (0-1.3) Eosinophils # (Auto) 0 10 ^3/uL (0-0.8) Basophils # (Auto) 0 10 ^3/uL (0-0.2) Nucleated Red Blood Cells 0.1 % Sodium Level 142 mmol/L (136-145) Potassium Level 3.9 mmol/L (3.5-5.1) Chloride Level 104 mmol/L (98-107) Carbon Dioxide Level 30 mmol/L (20-31) Anion Gap 8 (5-15) Blood Urea Nitrogen 18 mg/dL (9-23) Creatinine 1.10 mg/dL (0.700-1.30) Glomerular Filtration Rate Calc 83 mL/min (>90) BUN/Creatinine Ratio 16.4 (10.0-20.0) Serum Glucose 106 mg/dL (74-106) Calcium Level 9.1 mg/dL (8.7-10.4) Total Bilirubin 0.6 mg/dL (0.2-1.0) Aspartate Amino Transferase (AST) 39 U/L (13-40) Alanine Aminotransferase (ALT) 27 U/L (7-40) Alkaline Phosphatase 67 U/L (46-116) Total Protein 6.1 g/dL (5.7-8.2) Albumin 4.0 g/dL (3.2-4.8) Prothrombin Time 10.8 sec (9.3-11.8) Prothrombin Time INR 1.02 (0.9-1.15) Activated Partial Thromboplast Time 28.2 SEC (24.5-34.5) Urine Color Light-yellow (Yellow) Urine Clarity Clear (Clear) Urine pH 5.5 (5.0-9.0) Urine Specific [place] 1.023 (1.001-1.035) Urine Protein Negative (Negative) Urine Ketones Negative (Negative) Urine Blood Negative /uL (Negative) Urine Nitrite Negative (Negative) Urine Bilirubin Negative (Negative) Urine Urobilinogen Normal mg/dL (Negative) Urine Leukocyte Esterase Negative /uL (Negative) Urine RBC 1 /hpf (0 - 3) Urine Microscopic WBC < 1 /HPF (0-3) Urine Squamous Epithelial Cells None seen /hpf (<5) Urine Bacteria None seen /hpf (None Seen) Urine Glucose Normal mg/dL (Normal) Other Laboratory Tests 04/20/24 06:28 Brief Hx & Hospital Course: The patient arrived for a elective spine surgery with Dr. ROSE. Surgery went as planned with no complications. After a short stay in the PACU patient was admitted to the hospital for postoperative care and pain management over the course of 3 postoperative days the patient was able to tolerate a diet, ambulate independently, the pain has been managed with oral analgesics. The surgical site is well-approximated with sutures, some residual drainage continues from drain insertion sites after removal, however it is manageable with daily wound care and dressing changes. Some improvement to preoperative symptoms of extremities, strength and motion. There is new post operative pain that is localized to the surgical site. The patient will follow-up with Dr. Rose for wound check and suture check or staple removal. Operations or Procedures Pre-op Diagnosis: 1. 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 Lumbar spinal stenosis with incapacitating radiculopathy Procedure: 1. Revision lumbar 5 laminotomies/foraminotomies/facetectomies to decompress central canal and lumbar 5 nerve roots bilaterally 2. Revision lumbar 4 laminotomies, foraminotomies/facetectomies to decompress central canal and lumbar 4 nerve roots bilaterally 3. lumbar 3 laminectomy with lumbar 3 foraminotomies and facetectomies to decompress central canal and bilateral lumbar 3 tena roots 4. Lumbar 3 to 5 posterior spinal intertransverse fusion with bone graft 5. Lumbar 3 to 5 posterior spinal instrumentation with pedicle screws Condition at Discharge: Good Final Diagnosis/Problems List Acute postoperative pain status post spine surgery Acute postoperative muscle spasms status post spine surgery Discharge Disposition: Home Discharge Instruct/Medications Diet: See Comment Diet comment: You may advance her diet as tolerated bacteria are normal eating habits. Please try and avoid processed sugars. If you are diabetic he must monitoring her blood sugar to make sure it is within normal limits. Diabetics have a higher incidence of infection in controlling her blood sugar will be one way to help prevent this Activity: Light activity Activity comment: Limit twisting, bending, no lifting anything over 5 lb until cleared by your surgeon. Walk frequently. Follow Up/Referral: Keep your postoperative appointment if you need to change it Call [phone] for a appointment [address] [facility], [address] [id number] Medications: Prescription sent to pharmacy of choice New Medications: Cyclobenzaprine HCl (Cyclobenzaprine Hydrochlo) 10 Mg Tab 10 MG PO TID for 30 Days, #90 TAB Docusate Sodium (Docusate Sodium) 100 Mg Cap 100 MG PO BID for 14 Days, #28 CAP Hydrocodone-Acetaminophen (Hydrocodone Bitartrate/AC 10-325 mg) 1 Tab Tab 1 TAB PO Q6HP PRN for 14 Days, #56 TAB Continued Medications: Hydrochlorothiazide (Hydrochlorothiazide) 25 Mg Tab 25 MG PO DAILY, TAB Lisinopril (Lisinopril) 40 Mg Tab 40 MG PO DAILY, TAB Metoprolol Succinate (Toprol Xl) 25 Mg Tab 25 MG PO DAILY, TAB Discharge Statement: "Patient was advised to return to the ER or call 911 if any headaches, dizziness, shortness of breath, chest pain, abdominal pain, bleeding, fevers, or worsening of medical condition. Patient was counseled about treatment plan, medications, possible side effects, patientverbalized understanding. All questions were answered to the best of my ability. This discharge took greater then 30 minutes in planning, reviewing documentation, counseling the patient, and discussing with other team members." ASSESSMENT ASSESSMENT Hospital Course The patient arrived for a elective spine surgery with Dr. ROSE. Surgery went as planned with no complications. After a short stay in the PACU patient was admitted to the hospital for postoperative care and pain management over the course of 3 postoperative days the patient was able to tolerate a diet, ambulate independently, the pain has been managed with oral analgesics. The surgical site is well-approximated with sutures, some residual drainage continues from drain insertion sites after removal, however it is manageable with daily wound care and dressing changes. Some improvement to preoperative symptoms of extremities, strength and motion. There is new post operative pain that is localized to the surgical site. The patient will follow-up with Dr. Rose for wound check and suture check or staple removal. Assessment Prescription sent for stool softener Problems: (1) Muscle spasm of back Assessments: Prescription sent for muscle spasms (2) Postoperative pain after spinal surgery Assessments: Prescriptions sent for oral analgesia (3) Constipation due to opioid therapy Assessments: Prescription sent for stool softener LISA CLEMENTS NP Apr 21, 2024 15:12
== END 2024-04-21 17:30 | disposition home health service (06) | DRG 448 ==
LOC: SUR 05:50 → TELE 08:30 → TELE-WESTW 14:16 → OVERFLOW 15:28 → WEST WING 15:46 → OVERFLOW 16:23 → WEST WING 17:38 → OVERFLOW 04-19 13:09 → TELE-WESTW 04-19 13:14 → WEST WING 04-19 23:59
PROVIDERS: ADMIT Orthopaedic Surgery; ATTEND Internal Medicine
PROC: 01NB0ZZ Release Lumbar Nerve, Open Approach (ICD-10-PCS; 2024-04-18)
PROC: 00NY0ZZ Release Lumbar Spinal Cord, Open Approach (ICD-10-PCS; 2024-04-18)
PROC: 4A11X4G Monitoring of Peripheral Nervous Electrical Activity, Intraoperative, External Approach (ICD-10-PCS; 2024-04-18)
PROC: 5A09357 Assistance with Respiratory Ventilation, Less than 24 Consecutive Hours, Continuous Positive Airway Pressure (ICD-10-PCS; 2024-04-18)
PROC: 0SG1071 Fusion of 2 or more Lumbar Vertebral Joints with Autologous Tissue Substitute, Posterior Approach, Posterior Column, Open Approach (ICD-10-PCS; principal; 2024-04-18 07:37)
DX: M48.062 Spinal stenosis, lumbar region with neurogenic claudication (principal); M51.369 Other intervertebral disc degeneration, lumbar region without mention of lumbar back pain or lower extremity pain; G47.33 Obstructive sleep apnea (adult) (pediatric); E66.01 Morbid (severe) obesity due to excess calories; M96.1 Postlaminectomy syndrome, not elsewhere classified; M54.16 Radiculopathy, lumbar region; I10 Essential (primary) hypertension; Z68.22 Body mass index [BMI] 22.0-22.9, adult
CPT/HCPCS: 36415; 36600; 72100; 76000; 80053; 81001; 82805; 85025; 85610; 85730; 86850; 86900; 86901; 94660; 97110; 97116; 97163; G0378; J1100; J1885; J2250; J2405; J2704; J7042

== ENCOUNTER 2024-10-23 18:51 | Emergency (ER) | payer MEDICAID, OTHER ==
[~2024-10-23] VITALS: Ht 172.7 cm; Wt 132.0 kg
[~2024-10-23 18:51] MED LIST changes: +CYCL-611 PO; +DOCU-265 PO; +HYDR-4798 PO
[2024-10-23 19:37] VITALS: BP 172/98; PULSE 69; RESP 20; TEMP 97.8; O2SAT 98
--- NOTE | 2024-10-23 19:51 | DVH ---
CLINICAL HISTORY: lumbar back pain TECHNIQUE: 3 views of the lumbar spine were obtained. COMPARISON: XY LUMBAR SPINE 3 VIEW on DOS: 04/18/24 FINDINGS: There has been posterior L4-S1 fusion surgery. The hardware appears intact. The alignment of the lumb ar spine is normal. The vertebral body heights are maintained. There is multi level intervertebral di sc space loss, [id number] at L3-L4 and L5-S1. There are multi level endplate osteophytes. No ac king salmon fracture or dislocation is seen. IMPRESSION: Posterior L4-S1 fusion surgery. No fracture seen.
--- NOTE | 2024-10-23 19:54 | ED.PDOC ---
Back pain HPI HPI Comments 49 year old male presents to ER with complaints of back pain x 2.5 weeks. Patient reports that he fell towards towards his right side while sitting in a beach chair 2.5 weeks ago and hit his right lower lumbar region against the corner of a beach chair and has since been experiencing right lower lumbar back pain. He rates his current pain a 5/10 to right lower lumbar region with radiation towards right thigh. Notes he did have lumbar fusion surgery by Dr. Rose at this hospital in April of this year and presents to ER ambulatory on arrival, with steady gait, in no distress. Denies fever, night sweats, numbness/tingling, extremity weakness, abdominal/pelvic pain, hip pain, changes in urination/bm or any further symptoms/complaints Chief Complaint: Back Pain Time Seen by MD: 18:54 Primary Care Provider: UNKNOWN Reviewed Notes: Nurses Notes, Medications, Allergies Allergies: Coded Allergies: NO KNOWN ALLERGIES (Unverified , 04/14/24) Home Meds Active Scripts Hydrocodone-Acetaminophen (Hydrocodone Bitartrate/AC 10-325 mg) 1 Tab Tab, 1 TAB PO Q6HP PRN for 14 Days, #56 TAB Prov:LISA CLEMENTS LOOPER FIXER 04/21/24 Docusate Sodium (Docusate Sodium) 100 Mg Cap, 100 MG PO BID for 14 Days, #28 CAP Prov:LISA CLEMENTS LOOPER FIXER 04/21/24 Cyclobenzaprine HCl (Cyclobenzaprine Hydrochlo) 10 Mg Tab, 10 MG PO TID for 30 Days, #90 TAB Prov:LISA CLEMENTS LOOPER FIXER 04/21/24 Reported Medications Lisinopril (Lisinopril) 40 Mg Tab, 40 MG PO DAILY, TAB 04/14/24 Metoprolol Succinate (Toprol Xl) 25 Mg Tab, 25 MG PO DAILY, TAB 04/14/24 Hydrochlorothiazide (Hydrochlorothiazide) 25 Mg Tab, 25 MG PO DAILY, TAB 04/14/24 Information Source: Patient Mode of Arrival: Ambulatory Past Medical History PAST MEDICAL HISTORY: HTN Surgical History (Other): Lumbar fusion surgery - Apr 2024 Family History Family History: Unknown Social History Smoker: Non-Smoker Alcohol: Denies ETOH Use Drugs: Denies Drug Use Lives In: Home Constitutional: denies: chills, diaphoresis, fatigue, fever, malaise, sweats, weakness, others EENTM: denies: blurred vision, double vision, ear bleeding, ear discharge, ear drainage, ear pain, ear ringing, eye pain, eye redness, hearing loss, mouth pain, mouth swelling, nasal discharge, nose bleeding, nose congestion, nose pain, photophobia, tearing, throat pain, throat swelling, voice changes, others Respiratory: denies: cough, hemoptysis, orthopnea, SOB at rest, shortness of breath, SOB with excertion, stridor, wheezing, others Cardiovascular: denies: chest pain, dizzy spells, diaphoresis, Dyspnea on exertion, edema, irregular heart beat, left arm pain, lightheadedness, palpitations, PND, syncope, others Gastrointestinal: denies: abdomen distended, abdominal pain, blood streaked bowels, constipated, diarrhea, dysphagia, difficulty swallowing, hematemesis, melena, nausea, poor appetite, poor fluid intake, rectal bleeding, rectal pain, vomiting, others Genitourinary: denies: burning, dysuria, flank pain, frequency, hematuria, incontinence, penile discharge, penile sore, pain, testicle pain, testicle swelling, urgency, others Neurological: denies: dizziness, fainting, headache, left sided numbness, left sided weakness, numbness, paresthesia, pre-existing deficit, right sided numbness, right sided weakness, seizure, speech problems, tingling, tremors, weakness, others Musculoskeletal: reports: others (As stated in HPI) Integumetry: denies: bruises, change in color, change in hair/nails, dryness, laceration, lesions, lumps, rash, wounds, others Allergic/Immunocompromised: denies: Difficulty Healing, Frequent Infections, Hives, Itching, others Hematologic/Lymphatic: denies: anemia, blood clots, easy bleeding, easy bruising, swollen glands, others Endocrine: denies: excessive hunger, excessive sweating, excessive thirst, excessive urination, flushing, intolerance to cold, intolerance to heat, unexplained weight gain, unexplained weight loss, others Psychiatric: denies: anxiety, bipolar disorder, depression, hopeless, panic disorder, schizophrenia, sleepless, suicidal, others Physical Exam General Appearance: No Apparent Distress, Obese HEENT: PERRL/EOMI Neck: Full Range of Motion, Non-Tender, Normal Respiratory: Chest Non-Tender, Lungs Clear, No Accessory Muscle Use, No Respiratory Distress, Normal Breath Sounds Cardiovascular: No Murmur, No Gallop, Regular Rate/Rhythm Breast Exam: Deferred Gastrointestinal: Non Tender, No Pulsatile Mass, Soft Genitalia: Deferred Pelvic: Deferred Rectal: Deferred Extremities: No calf tenderness, Normal capillary refill, Normal range of motion Musculoskeletal : Extremity Location: Back (TTP to right lower lumbar region noted. Scar noted from previous lumbar fusion surgery. No further skin changes noted. 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 Was a procedure done?: No Sedation Sedation?: No Back Pain Differential Dx Differential Diagnosis: Fracture, Urinary Tract Infection, Other (Neurovascular injury) X-Ray, Labs, Meds, VS Vital Signs Date Time Temp Pulse Resp B/P (MAP) Pulse Ox O2 Delivery O2 Flow Rate FiO2 10/23/24 19:37 69 20 10/23/24 19:37 97.8 69 20 172/98 (122) 98 97.8 10/23/24 18:53 98.2 68 18 174/98 98 98.2 PATIENT: EARL VALDEZ EACCT: [id number]: [id number] : 1975 LOC: ER ROOM / BED: / AGE / SEX: 49 / M ADM STATUS: REG ER SERVICE 20 ORDERING PHYSICIAN: GIULIA LLOYD PROCEDURE(s): LUMB2 - LUMBAR SPINE 3 VIEW REASON: lumbar back pain ORDER NUMBER(s): [id number], ACCESSION NUMBER(s): [id number] CLINICAL HISTORY: lumbar back pain TECHNIQUE: 3 views of the lumbar spine were obtained. COMPARISON: XY LUMBAR SPINE 3 VIEW on DOS: 04/18/24 FINDINGS: There has been posterior L4-S1 fusion surgery. The hardware appears intact. The alignment of the lumbar spine is normal. The vertebral body heights are maintained. There is multi level intervertebral disc space loss, [id number] at L3-L4 and L5-S1. There are multi level endplate osteophytes. No acute fracture or dislocation is seen. IMPRESSION: Posterior L4-S1 fusion surgery. No fracture seen. ATED BY: HEATHER LOUIS MD DICTATED DATE/TIME: 10/23/241947 SIGNED BY: HEATHER LOUIS MD SIGNED DATE/TIME: 10/23/241947 CC: Lumbar spine x-ray reviewed Patient neurovascularly intact and in no distress prior to discharge Advised to follow up with PCP and Dr. Rose in 1-2 days Patient verbalized understanding and agreeable with current plan of care Advised to return to ER immediately if symptoms worsen Images Reviewed?: Images reviewed and evaluated by me Time of 1ST Reevaluation: 19:34 Reevaluation 1ST: N/A Patient Education/Counseling: Diagnosis, Treatment, Prognosis, Need For Follow Up Family Education/Counseling: No Family Present SEPSIS Sepsis Screen Date sepsis recognized/suspect: Oct 23, 2024 Time Sepsis recognized/suspect: 1856 Recent Procedure: No On Antibiotic Therapy: No Respiratory Rate >20: No Heart Rate >90: No Temp<36 C (96.8 F) or >38.3 C: No SBP <90 or MAP <65 mmHG: No New Acute Mental Status Change: No Is the patient on CPAP, BIPAP,: No Physician Orders Lumbar Spine 3 View (10/23/24 19:21) Vital Signs Date Time Temp Pulse Resp B/P (MAP) Pulse Ox O2 Delivery O2 Flow Rate FiO2 10/23/24 19:37 69 20 10/23/24 19:37 97.8 69 20 172/98 (122) 98 97.8 10/23/24 18:53 98.2 68 18 174/98 98 98.2 Departure 1 Departure Time of Disposition: 19:52 Impression: Primary Impression: Lumbar strain Qualified Codes: S39.012A - Strain of muscle, fascia and tendon of lower back, initial encounter Disposition: HOME / SELF CARE / HOMELESS Condition: Stable Discharged With: Self Critical Care Note Critical Care Time?: No Stability Stability form required: No Heart Score Heart Score: Heart Score Response (Comments) Value History N/A 0 EKG N/A 0 Age N/A 0 Risk Factors N/A 0 Troponin N/A 0 Total 0 GIULIA LLOYD Oct 23, 2024 19:54
== END 2024-10-23 20:09 | disposition home or self-care (01) ==
LOC: ER 18:51
DX: S39.012A Strain of muscle, fascia and tendon of lower back, initial encounter (principal); I10 Essential (primary) hypertension; Z79.899 Other long term (current) drug therapy; X58.XXXA Exposure to other specified factors, initial encounter; Y93.89 Activity, other specified; Y92.89 Other specified places as the place of occurrence of the external cause; Y99.8 Other external cause status
CPT/HCPCS: 72100